=== PATIENT | male | born 1995 | race Caucasian/White ===

== ENCOUNTER 2021-05-14 12:45 | Emergency (ER) | payer BC, SELFPAY ==
[2021-05-14 12:54] VITALS: BP 172/86; PULSE 87; RESP 19; TEMP 36.8; O2SAT 98; BMI 37.8
--- NOTE | 2021-05-14 13:07 | XR_ITS ---
PROCEDURE: XR ANKLE RT MIN 3V X-ray foot right Min three views CLINICAL INDICATION: painful to walk on COMPARISON: CR XR FOOT RT MIN 3V from 05/14/2021 FINDINGS: Three views of the right ankle show a tiny avulsion of the medial process of the talus with mild soft tissue swelling about the ankle joint. Ankle joint mortise appears intact. No other abnormality. Three views of the right foot show no fracture or dislocation. Joint spaces are normal. Mild soft tissue swelling is noted. IMPRESSION: Tiny avulsion of the medial process of the talus with mild soft tissue swelling about the ankle joint. No acute fracture or dislocation of the foot. Dictated by: Jono Espinoza MD 05/14/2021 13:36 Jono Espinoza MD in [place] 05/14/2021 13:36
[2021-05-14 13:09] VITALS: BP 172/86; PULSE 87; RESP 19; TEMP 36.8; O2SAT 98
--- NOTE | 2021-05-14 14:26 | HMH.EDUTC ---
[facility] [place] Clinical Impression: Avulsion fracture of right ankle Qualifiers: Encounter type: initial encounter Fracture type: closed Qualified Code(s): S82.891A - Other fracture of right lower leg, initial encounter for closed fracture Disposition: Home, Self-Care Condition on Discharge: Good Instructions: DI for Ankle Fracture Additional Instructions: Rest the extremity, apply ice for 15 minutes as tolerated three or four times per day, Elevate the extremity as tolerated while you are resting. Take ibuprofen for pain. I sent in a prescription to your pharmacy. Follow up with Dr. Amaya (podiatry). I put in a referral but you need to call her office and schedule an appointment. Follow up with your regular doctor. GO TO THE ER FOR ANY WORSENING SYMPTOMS Prescriptions: Ibuprofen [Ibuprofen 600mg Tablet] 600 mg PO Q6HP PRN #30 tab PRN Reason: Mild Pain Transmission Status: Received by [id number] Referrals: Angie Montilla APRN [Primary Care Provider] - Tameka Amaya DPM [Staff Physician] - Time of Disposition: 14:30 Medical Decision Making - Medical Records Medical records reviewed: No: I reviewed the patient's medical records. - Rhett Inquiry Pt receiving controlled substance: No Vital Signs: 05/14/21 12:54 05/14/21 13:09 Temperature 98.3 F 98.3 F Temperature Source Oral Pulse Rate 87 Pulse Rate [Left] 87 Respiratory Rate 19 19 Blood Pressure 172/86 H Blood Pressure [Right Arm] 172/86 H Blood Pressure Mean [Right Arm] 114 02 Sat by Pulse Oximetry 98 - Radiology Data #1 Image(s): Ankle Image Reviewed: Yes I reviewed the patient's radiology image, Yes I have reviewed radiologist's interpretation Preliminary Findings: Abnormal PROCEDURE: XR ANKLE RT MIN 3V X-ray foot right Min three views CLINICAL INDICATION: painful to walk on COMPARISON: CR XR FOOT RT MIN 3V from 05/14/2021 FINDINGS: Three views of the right ankle show a tiny avulsion of the medial process of the talus with mild soft tissue swelling about the ankle joint. Ankle joint mortise appears intact. No other abnormality. Three views of the right foot show no fracture or dislocation. Joint spaces are normal. Mild soft tissue swelling is noted. IMPRESSION: Tiny avulsion of the medial process of the talus with mild soft tissue swelling about the ankle joint. No acute fracture or dislocation of the foot. Dictated by: Jono Espinoza MD 05/14/2021 13:36 Jono Espinoza MD in [place] 05/14/2021 13:36 #2 Image(s): Foot/Toes Image Reviewed: Yes I reviewed the patient's radiology image, Yes I have reviewed radiologist's interpretation Preliminary Findings: Abnormal PROCEDURE: XR ANKLE RT MIN 3V X-ray foot right Min three views CLINICAL INDICATION: painful to walk on COMPARISON: CR XR FOOT RT MIN 3V from 05/14/2021 FINDINGS: Three views of the right ankle show a tiny avulsion of the medial process of the talus with mild soft tissue swelling about the ankle joint. Ankle joint mortise appears intact. No other abnormality. Three views of the right foot show no fracture or dislocation. Joint spaces are normal. Mild soft tissue swelling is noted. IMPRESSION: Tiny avulsion of the medial process of the talus with mild soft tissue swelling about the ankle joint. No acute fracture or dislocation of the foot. Dictated by: Jono Espinoza MD 05/14/2021 13:36 Jono Espinoza MD in [place] 05/14/2021 13:36 [facility] [place] - General Stated complaint: rt ankle pain Time Seen by Provider: 05/14/21 14:26 Mode of Arrival: Ambulatory Source of Information: Patient Limitations: No Limitations Description of Symptoms (Recalled from Triage Doc. by RN): Pt states he woke up and his right ankle and heel hurt to walk on. Pt denies injury. HEENT Symptoms (Recalled from RN notes): No Resp Symptoms (Recalled from RN notes): No Skin Symptoms (Recalled from RN notes): No MS Symptoms (
== END 2021-05-14 14:35 | disposition home or self-care (01) ==
PROVIDERS: Emergency Provider Nurse Practitioner Family; PCP Nurse Practitioner Family
DX: S82.891A Other fracture of right lower leg, initial encounter for closed fracture (principal)
CPT/HCPCS: 29515; 73610; 73630; 99203; G0463

== ENCOUNTER → 2021-12-26 18:06 | Outpatient (CLI) | payer BC, SELFPAY ==
[2021-12-26 18:10] VITALS: BMI 31.1
== END ==
PROVIDERS: Visit Provider Nurse Practitioner
DX: U07.1 COVID-19 (principal)
CPT/HCPCS: C9803; U0003; U0005

== ENCOUNTER 2022-06-25 12:19 | Emergency (ER) | payer BC, SELFPAY ==
[2022-06-25 12:44] VITALS: BP 161/91; PULSE 80; RESP 19; TEMP 36.9; O2SAT 98; BMI 39.9
[2022-06-25 12:44] LABS: UTC Strep Screen (Rapid) Positive (Negative)
--- NOTE | 2022-06-25 13:11 | HMH.EDUTC ---
[facility] [place] Clinical Impression: Strep throat Disposition: Home, Self-Care Condition on Discharge: Good Instructions: DI for COVID-19 (Suspected or Confirmed ), Preventing the Spread of Coronavirus Discharge Instructions, Strep Throat (Alternative Therapy), DI for Strep Throat Additional Instructions: *Monitor Temp, Over the counter Motrin or Tylenol as directed/as needed Tylenol every 4 hours and Motrin every 6 hours (as long as your family doctor has told you that you can take it) for fever or pain. and straight to ER if unable to lower temp less than 101.0 after medication given *Warm salt water gargles may help to soothe the throat *Throat Lozenges *Warm fluids like tea with honey may help to soothe the throat *Sleep elevated *Humidifier/Vaporizer *If you did not take Penicillin shot or was unable to, start taking antibiotic immediately and make sure that you take it for the FULL length of time although you should start to feel better in 24-48 hours *change toothbrush and toothpaste 24-48 hours after starting to take antibiotics so you do not reinfect yourself Monitor Temp. Tylenol and/or Ibuprofen as needed. ER if fever is no less than 101 despite alternating Tylenol and Ibuprofen * Encourage fluids, water, Gatorade, powerade, pedialyte if /toddler/or child *Cold fluids, popsicles and ice cream may feel good on his throat Follow up IMMEDIATELY for new or worsening symptoms or no Noticeable improvement over the next 48-72 hours. 911 for difficulty breathing or swallowing You were tested for today for COVID19 your test result should be back in the next 24-48 hours, you may check your Results on [facility] My Health Portal Make sure to take your Vitamins Vit. C Vit D and Zinc if you can take them Prescriptions: Amoxicillin [Amoxicillin 875MG Tab] 875 mg PO Q12H #20 tab Transmission Status: [id number] methylPREDNISolone [Medrol 4mg tab] 4 mg PO DIRECTED #21 tab Transmission Status: Pending to [id number] Ondansetron [Zofran 4mg ODT] 4 mg PO TIDP PRN #20 tab PRN Reason: Nausea Transmission Status: P[facility] to [id number] Referrals: Angie Montilla APRN [Primary Care Provider] - As needed Forms: Work/School Release Time of Disposition: 13:18 Medical Decision Making - Rhett Inquiry Pt receiving controlled substance: No Rhett was queried for this patient: No Vital Signs: 06/25/22 12:44 Temperature 98.4 F Temperature Source Oral Pulse Rate [Left] 80 Respiratory Rate 19 Blood Pressure [Right Arm] 161/91 H Blood Pressure Mean [Right Arm] 114 02 Sat by Pulse Oximetry 98 - Lab Data Lab results reviewed: Yes: I reviewed the patient's lab results. Lab Results 06/25/22 12:29: Strep Scn Rapid Clinic Positive A [facility] HPI - General Stated complaint: sore throat, SOB, vomiting Time Seen by Provider: 06/25/22 13:11 Mode of Arrival: Ambulatory Source of Information: Patient Limitations: No Limitations Description of Symptoms (Recalled from Triage Doc. by RN): patient comes in for sore throat, vomitting, headahche. symptoms began last night. HEENT Symptoms (Recalled from RN notes): Yes Resp Symptoms (Recalled from RN notes): No Skin Symptoms (Recalled from RN notes): No MS Symptoms (Recalled from RN notes): No Functional Status (Recalled from RN notes): n/a - History of Present Illness Provider Complaint: Patient states that he started feeling bad last night with headache, sore throat, N/V and body aches State that today he was feeling worse and hurts when he swallows State that he has still been having N/V State that just found out that ramona he was around last week tested positive for COVID - Related Data Previous Rx's Medication Instructions Recorded Amoxicillin [Amoxicillin 875MG 875 mg PO Q12H #20 tab 06/25/22 Tab] Ondansetron [Zofran 4mg ODT] 4 mg PO TIDP PRN #20 tab 06/25/22 methylPREDNISolone [Medrol 4mg 4 mg PO DIRECTED #
[2022-06-25 13:30] VITALS: BP 113/72; PULSE 71; RESP 17; TEMP 36.6
== END 2022-06-25 13:35 | disposition home or self-care (01) ==
PROVIDERS: Emergency Provider Nurse Practitioner; PCP Nurse Practitioner Family
DX: J02.0 Streptococcal pharyngitis (principal)
CPT/HCPCS: 87880; 99212; C9803; G0463; U0003; U0005